=== PATIENT | female | born 1995 ===

== ENCOUNTER → 2021-03-18 10:51 | Outpatient (CLI) | payer OTHER, SELFPAY ==
[2021-03-18 12:10] LABS: COVID19 -Nasal RAPID Negative (Negative)
== END ==
PROVIDERS: Referring Provider Physician Assistant; Visit Provider Physician Assistant
DX: Z01.812 Encounter for preprocedural laboratory examination (principal); Z20.822 Contact with and (suspected) exposure to COVID-19
CPT/HCPCS: 87635

== ENCOUNTER → 2021-03-20 13:29 | Outpatient (CLI) | payer OTHER, SELFPAY ==
--- NOTE | 2021-03-20 | DI.ECHO.S_ITS ---
[facility]---------+ [facility] +---------+ : : [address] : [address] : : : : [id number] : : : : Phone: [phone]+ Echocardiogram Report + + :Name: PAMELA SHANKS Study Date: 03/20/2021 Height: 62 in : :[facility] ReadingLocation: Weight: 176 lb : : Gender: Female BSA: 1.8 m2 : :: 1995 Age: 25 yrs BP: 114/81 mmHg: :Reason For Study: TACHYCARDIA : :Ordering Physician: GABRIELLA, : :KHADAR Performed By: Staci Medeiros : :Referring: KHADAR PUENTES : + + Interpretation Summary 1) Normal left ventricular thickness, size, wall motion, and systolic function (EF 60-65%). 2) Normal right ventricular size and function. 3) No significant valvular abnormalities. 4) No prior Echo available for comparison. Procedure: A two-dimensional transthoracic echocardiogram with color flow and Doppler was performed. The study quality was technically adequate. There is no prior echocardiogram noted for this patient. The patient was in sinus rhythm with heart rates between 72-95 bpm during the exam. Left Ventricle: The left ventricle is normal in size and wall thickness. The ejection fraction is estimated to be 60-65%. Diastolic parameters suggest probable normal left ventricular diastolic function and normal filling pressures. Right Ventricle: The right ventricle is normal in size and function. The right ventricular systolic function is normal. Atria: Both atria are normal in size. There is no Doppler evidence for an interatrial shunt. Mitral Valve: The mitral valve is normal in structure and function. There is no mitral regurgitation noted. Aortic Valve: The aortic valve is trileaflet. The aortic valve opens well. There is no aortic valve stenosis. No aortic regurgitation is present. Tricuspid Valve: The tricuspid valve is normal in structure and function. There is trace tricuspid regurgitation. Pulmonary artery pressures cannot be estimated because of the lack of a measurable TR jet velocity but the IVC suggests a CVP of around 3 mmHg. Pulmonic Valve: The pulmonic valve leaflets are thin and pliable; valve motion is normal. There is no pulmonic valvular regurgitation. Great Vessels: The aortic root is normal size. The dimensions of the ascending aorta are normal. The IVC is of normal diameter and collapses greater than 50% with a sniff. This suggests a low right atrial pressure of 3 mm Hg. Pericardium/ Pleura There is no pericardial effusion. There is no pleural effusion. MMode/2D Measurements & Calculations LVIDd: 4.2 cm LVOT diam: 2.1 cm LVIDs: 2.7 cm Ao root diam: 2.8 cm FS: 34.8 % asc Aorta Diam: 2.5 cm IVSd: 0.77 cm Ao Arch Diam (Prox Trans): 2.0 cm LVPWd: 0.67 cm LV engle. diameter/BSA (cm/m^2): 2.3 LV sys. diameter/BSA (cm/m^2): 1.5 LA A2 area: 12.7 cm2 RA long axis: 4.0 cm LA A4 area: 11.5 cm2 RA area: 10.5 cm2 LA length (vol): 4.0 cm RA vol: 23.1 ml LA vol: 30.6 ml RA : 12.8 ml/m2 LA vol index: 16.9 ml/m2 IVC diam: 1.4 cm RVD1 (basal): 3.1 cm TAPSE: 1.8 cm Doppler Measurements & Calculations Ao V2 max: 98.9 cm/sec LVOT Max Lv: 77.6 cm/sec Ao V2 mean: 70.4 cm/sec LV V1 max P.4 mmHg Ao max P.9 mmHg LV V1 VTI: 13.1 cm Ao mean P.2 mmHg EMILE(I,D): 2.5 cm2 Ao V2 VTI: 17.1 cm EMILE(V,D): 2.6 cm2 sev ratio: 0.76 EMILE indexed to BSA (cm^2/m^2): 1.4 MV E max lv: 65.1 cm/sec PA V2 max: 75.9 cm/sec MV A max lv: 35.6 cm/sec PA V2 mean: 51.4 cm/sec MV E/A: 1.8 PA mean P.2 mmHg Med Peak E' Lv: 10.7 cm/sec PA pr(Accel): 29.3 mmHg E/E' med: 6.1 Lat Peak E' Lv: 12.2 cm/sec E/E' lat: 5.3 E/e' average: 5.7 MV dec time: 0.16 sec SV(LVOT): 43.3 ml Reading Physician:10:29 AM
--- NOTE | 2021-03-20 15:40 | PM.TREADMILL ---
Cardiac Stress Test Report Referral & Results Date Patient Seen: 03/20/21 Time Patient Seen: 15:40 Requesting provider: Roderick Puentes Indication: sinus tachycardia Rest ECG: Sinus rhythm Procedure Note: Standard Jeramy protocol, 10:41 mins, 10.5 METS Fair exercise capacity, NEAL -2% Normal hemodynamic response; accelerated heart rate response No chest pain or anginal symptoms No significant ST changes at peak exercise No ectopy Impression: Normal exercise stress test Please note: Actual ECG tracings can be found in the PACS system.
== END ==
PROVIDERS: PCP Internal Medicine; Referring Provider Internal Medicine Cardiovascular Disease; Visit Provider Internal Medicine Cardiovascular Disease
DX: R00.0 Tachycardia, unspecified (principal)
CPT/HCPCS: 93017; 93306